=== PATIENT | female | born 1945 | race Caucasian/White ===

== ENCOUNTER 2018-07-12 12:09 | Day surgery (SDC) | payer MEDICARE, MEDICAID ==
[2018-07-11 10:20] VITALS: BMI 33.6
[2018-07-12] MEDS ORDERED: Bacitracin Zinc Ointment 30 gm TUBE ONE (15:11)
[2018-07-12] MEDS ORDERED: Lidocaine 1% PF 5 ML VIAL ONE (15:58)
[2018-07-12] MEDS ORDERED: PROPOFOL 200 MG/20 ML VIAL ONE (15:58)
--- NOTE | 2018-07-12 22:06 | OP ---
DATE OF PROCEDURE: 07/12/2018 PROCEDURE: Colonoscopy (incomplete). INDICATION FOR PROCEDURE: Positive fecal immunohistochemical test (card-based colorectal cancer screen). DESCRIPTION OF PROCEDURE: After the risks and benefits of the procedure were explained to the patient including risk of bleeding, infection, perforation, reactions to anesthesia, aspiration, and/or pain, informed consent was obtained. The patient was then taken to the endoscopy suite, where deep sedation was administered via propofol and anesthesia support. Once adequate sedation was achieved, a digital rectal exam was performed followed by intubation or placement of the standard colonoscope into the rectum and advanced to the ascending colon/cecum with significant difficulty requiring abdominal pressure and placing the patient in a supine position in order to facilitate passage of the scope. Despite these measures, inadequate visualization of the cecum was obtained with only brief glimpses of the cecum seen during this procedure. During these brief glimpses, no neoplastic lesions were visualized but confirmation could not be performed. The quality of the prep was fair to good. The colon required some irrigation with sterile water in order to facilitate visualization of the colonic mucosa. The patient tolerated the procedure well with no immediate perioperative complications. The patient was then taken to the recovery area. At the completion of the procedure in satisfactory condition. COLONOSCOPY FINDINGS: DIGITAL RECTAL EXAM: Small external hemorrhoids were seen on external examination. COLON FINDINGS: The colonoscope was unable to be successfully advanced to the cecum with only brief glimpses of the cecal mucosa seen during this examination. Of the brief glimpses seen, there was no neoplastic or mass lesion seen, although smaller lesions cannot be ruled out at this time. Of the mucosa seen (95-97%), normal appearing mucosa was seen in the ascending, transverse, descending colons. Multiple diverticula were seen in the distal descending and sigmoid colons with many large and small diverticula noted in this region. There was also associated increased mucosal erythema with the diverticulosis seen during the exam, but there was no colonic stricture or luminal narrowing associated with the diverticulosis. Normal appearing mucosa was then seen in the distal sigmoid and rectum. Small internal hemorrhoids were seen on rectal retroflexion. IMPRESSION: 1. Incomplete evaluation of the colonoscopy secondary to colon tortuosity and redundancy of the colon with only brief glimpses of the cecal mucosa seen. 2. Of the mucosa seen approximately (95% to 97%) there were no polyps or lesions were seen throughout the entire colon. 3. [id number] left-sided diverticulosis with changes associated with mild inflammatory process (possible segmental colitis associated with diverticulosis). 4. Internal and external hemorrhoids. RECOMMENDATIONS: 1. Would repeat the colonoscopy in 6 to 12 months for completion of the procedure and adequate visualization of the cecal mucosa. 2. Would recommend a higher fiber diet given the presence of significant diverticulosis and hemorrhoids. 3. Follow up in the GI clinic as needed. LARS
== END 2018-07-12 16:35 | disposition home or self-care (01) ==
LOC: SDC 12:09
PROVIDERS: ATTEND Internal Medicine
PROC: 0DJD8ZZ Inspection of Lower Intestinal Tract, Via Natural or Artificial Opening Endoscopic (ICD-10-PCS; principal; 2018-07-12)
DX: R19.5 Other fecal abnormalities (principal); K57.31 Diverticulosis of large intestine without perforation or abscess with bleeding; K63.89 Other specified diseases of intestine; K64.4 Residual hemorrhoidal skin tags; K64.8 Other hemorrhoids; I25.10 Atherosclerotic heart disease of native coronary artery without angina pectoris; E11.9 Type 2 diabetes mellitus without complications; I10 Essential (primary) hypertension; Z79.82 Long term (current) use of aspirin; Z79.84 Long term (current) use of oral hypoglycemic drugs; Z79.899 Other long term (current) drug therapy; Z95.1 Presence of aortocoronary bypass graft
CPT/HCPCS: J2001; J2704

== ENCOUNTER 2020-06-12 13:53 | Outpatient (CLI) | payer MEDICARE, MEDICAID ==
--- NOTE | 2020-06-12 14:13 | RAD ---
XR Foot Lt 3 View STANDARD HISTORY: Injury, left foot pain FINDINGS: There is a minimally displaced fracture involving the medial aspect of the base of the proximal phala nx of the little toe/fifth digit . The fracture line extends into the articular surface.
== END 2020-06-12 13:54 | disposition home or self-care (01) ==
LOC: SCSRAD 13:53
PROVIDERS: ATTEND Family Medicine
DX: M79.672 Pain in left foot (principal)